=== PATIENT | male | born 1985 | race Caucasian/White ===

== ENCOUNTER 2017-09-13 10:27 | Emergency (ER) | payer OTHER ==
[~2017-09-13] VITALS: Ht 185.4 cm; Wt 61.0 kg
[~2017-09-13 10:27] MED LIST: BUSP10TA PO; LEXA10TA PO
[2017-09-13] MEDS ORDERED: IOHEXOL 350 MG/ML 10 ML VIAL (for RAD DIAG) IVCONTRAST ONE (10:28)
[2017-09-13 10:38] VITALS: BP 112/66; PULSE 68; RESP 17; TEMP 97.9; O2SAT 100
[2017-09-13 11:00] VITALS: BP 120/83; PULSE 66; RESP 12; O2SAT 100
[2017-09-13] MEDS ORDERED: GABA300C5 PO (11:02)
[2017-09-13] MEDS ORDERED: ROBA750T PO (11:02)
[2017-09-13] MEDS ORDERED: LIDOCAINE VISCOUS 2% SOLN 15 ML UDC PO ONE (11:15)
[2017-09-13] MEDS ORDERED: SODIUM CHLOR 0.9% 1000 ML INJ 1,000 ML IV SCH (11:15)
[2017-09-13] MEDS ORDERED: ALUMINUM/MAGNESIUM/SIMETH 30 ML CUP PO ONE (11:15)
[2017-09-13] MEDS ORDERED: SODIUM CHLORIDE 0.9% FLUSH 10 ML FLUSH IV FLUSH PRN (11:15)
[2017-09-13] MEDS ORDERED: ONDANSETRON HCL 4 MG/2 ML VIAL IVP ONE (11:15)
[2017-09-13] MEDS ORDERED: PANTOPRAZOLE SODIUM 40 MG VIAL IVP ONE (11:15)
--- NOTE | 2017-09-13 11:20 | PD ---
HPI Chief Complaint: GI Complaint Time Seen by Provider: 11:05 Travel History International Travel<30 days: No Contact w/Intl Traveler<30days: No Traveled to known affect area: No History of Present Illness HPI This is a 31-year-old male with history of Pepqf-Mcainidyl-Ydnef, anxiety, PTSD , presents for evaluation of nausea, vomiting, diarrhea, abdominal pain. Symptoms started 3 weeks ago. Reports a 1 month ago he was on amoxicillin for sinus infection. Symptoms started shortly after finishing the antibiotic. He reports multiple episodes of watery stool on a daily basis. He reports over the past 3 days also has been somewhat black in color. Denies Pepto-Bismol use. He does report that on a chronic basis he takes 200 mg of ibuprofen a day. He reports associated lower abdominal cramping sensation which is constant. He reports multiple episodes of vomiting a day as well. He reports 15 pound weight loss over the past month. He has not checked his temperature but he has had no chills or myalgias. Denies dysuria, flank pain, chest pain, shortness of breath, palpitations. No history of C. difficile in the past. He reports that he has had issues with diarrhea after antibiotics in the past. He has no other complaints at this time. [facility] Past Medical History Anxiety: Yes Depression: Yes Cardiovascular Problems: Yes (SCHRADER PARKINSON WHITE) Diminished Hearing: No Medical other: Yes (PTSD, SYNCOPE) Psychiatric: Yes Past Surgical History Other Surgery: Yes (02/21/11 L-4 LAMI AND DISCECTOMY) Social History Alcohol Use: No (SOBER 6 MONTHS) Tobacco Use: Yes (CHEWING TOBACCO) Substance Use: No (HX OF ) Allergies-Medications (Allergen,Severity, Reaction): Coded Allergies: No Known Allergies (Unverified Adverse Reaction, Unknown, 09/13/17) Reported Meds & Prescriptions Reported Meds & Active Scripts Active Zofran (Ondansetron HCl) 4 Mg Tab 4 Mg PO Q6HR PRN Reported Robaxin (Methocarbamol) 750 Mg Tab 750 Mg PO BID Gabapentin 300 Mg Cap 300 Mg PO TID Review of Systems Except as stated in HPI: all other systems reviewed are Neg Physical Exam Narrative GENERAL: Well-developed well-nourished male in no acute distress SKIN: Warm and dry. HEAD: Atraumatic. Normocephalic. EYES: Pupils equal and round. No scleral icterus. No injection or drainage. ENT: No nasal bleeding or discharge. Mucous membranes pink and moist. NECK: Trachea midline. No JVD. CARDIOVASCULAR: Regular rate and rhythm. No murmur appreciated. RESPIRATORY: No accessory muscle use. Clear to auscultation. Breath sounds equal bilaterally. GASTROINTESTINAL: Abdomen soft, tender to palpation in the lower quadrants without guarding. There is no CVA tenderness. MUSCULOSKELETAL: No obvious deformities. No clubbing. No cyanosis. No edema. NEUROLOGICAL: Awake and alert. No obvious cranial nerve deficits. Motor grossly within normal limits. Normal speech. PSYCHIATRIC: Appropriate mood and affect; insight and judgment normal. Data Data Last Documented VS Vital Signs Date Time Temp Pulse Resp B/P (MAP) Pulse Ox O2 Delivery O2 Flow Rate FiO2 09/13/17 14:24 65 12 128/72 (90) 100 Room Air 09/13/17 10:38 97.9 Orders Orders Complete Blood Count With Diff (09/13/17 11:15) Comprehensive Metabolic Panel (09/13/17 11:15) Lipase (09/13/17 11:15) Urinalysis - C+S If Indicated (09/13/17 11:15) Ct Abd/Pel W Iv Contrast(Rout) (09/13/17 11:15) Iv Access Insert/Monitor (09/13/17 11:15) Ecg Monitoring (09/13/17 11:15) Oximetry (09/13/17 11:15) Ondansetron Inj (Zofran Inj) (09/13/17 11:15) Pantoprazole Inj (Protonix Inj) (09/13/17 11:15) Sodium Chlor 0.9% 1000 Ml Inj (Ns 1000 M (09/13/17 11:15) Sodium Chloride 0.9% Flush (Ns Flush) (09/13/17 11:15) Electrocardiogram (09/13/17 11:15) Al-Mag Hy-Si 40-40-4 Mg/Ml Liq (Mag-Al P (09/13/17 11:15) Lidocaine 2% Viscous (Xylocaine 2% Visco (09/13/17 11:15) C Diff Toxin Pcr (09/13/17 11:15) Enteric Path (Stool) (09/13/17 11:15) Electrocardiogram (09/13/17 ) Iohexol 350 Inj (Omnipaque 350 Inj) (09/13/17 10:28) Ed Discharge Order (09/13/17 13:41) Labs Laboratory Tests Test 09/13/17 11:15 09/13/17 11:19 09/13/17 12:00 Blood Urea Nitrogen 12 MG/DL Creatinine 1.09 MG/DL Random Glucose 88 MG/DL Total Protein 8.1 GM/DL Albumin 4.7 GM/DL Calcium Level 9.3 MG/DL Alkaline Phosphatase 91 U/L Aspartate Amino Transf (AST/SGOT) 18 U/L Alanine Aminotransferase (ALT/SGPT) 20 U/L Total Bilirubin 0.7 MG/DL Sodium Level 140 MEQ/L Potassium Level 3.7 MEQ/L Chloride Level 107 MEQ/L Carbon Dioxide Level 22.6 MEQ/L Anion Gap 10 MEQ/L Estimat Glomerular Filtration Rate 78 ML/MIN Lipase 146 U/L White Blood Count 5.5 TH/MM3 Red Blood Count 5.17 MIL/MM3 Hemoglobin 15.5 GM/DL Hematocrit 45.5 % Mean Corpuscular Volume 88.0 FL Mean Corpuscular Hemoglobin 29.9 PG Mean Corpuscular Hemoglobin Concent 34.0 % Red Cell Distribution Width 12.5 % Platelet Count 195 TH/MM3 Mean Platelet Volume 10.3 FL Neutrophils (%) (Auto) 44.1 % Lymphocytes (%) (Auto) 40.8 % Monocytes (%) (Auto) 11.1 % Eosinophils (%) (Auto) 3.0 % Basophils (%) (Auto) 1.0 % Neutrophils # (Auto) 2.4 TH/MM3 Lymphocytes # (Auto) 2.2 TH/MM3 Monocytes # (Auto) 0.6 TH/MM3 Eosinophils # (Auto) 0.2 TH/MM3 Basophils # (Auto) 0.1 TH/MM3 CBC Comment DIFF FINAL Differential Comment Urine Color YELLOW Urine Turbidity HAZY Urine pH 7.5 Urine Specific [place] 1.035 Urine Protein 30 mg/dL Urine Glucose (UA) NEG mg/dL Urine Ketones 40 mg/dL Urine Occult Blood NEG Urine Nitrite NEG Urine Bilirubin NEG Urine Urobilinogen 4.0 MG/DL Urine Leukocyte Esterase NEG Urine RBC LESS THAN 1 /hpf Urine WBC 1 /hpf Urine Squamous Epithelial Cells 1 /hpf Urine Mucus MANY /lpf Microscopic Urinalysis Comment CULT NOT INDICATED Stool C. difficile Toxin (PCR) NEGATIVE Stl C. difficile Toxin Epiderm 027 PRESUMPTIVE NEGATIVE MDM Medical Decision Making Medical Screen Exam Complete: Yes Emergency Medical Condition: Yes Medical Record Reviewed: Yes Differential Diagnosis Gastroenteritis, colitis, dehydration, electrolyte abnormality, C. difficile, upper GI bleed, peptic ulcer disease Narrative Course The patient will be placed on ECG monitoring pulse oximetry. A 12-lead EKG will be obtained. Lab work, CT abdomen and pelvis have been ordered. Rectal examination was performed however there is no significant amount of stool in the rectal vault and therefore Hemoccult was negative. The patient will be given IV fluids, Protonix, GI cocktail, Zofran. CBC is unremarkable. CMP is unremarkable. Lipase is normal. CT abdomen and pelvis reveals no acute findings. Urinalysis reveals 30 protein, 40 ketones, 4 urobilinogen, otherwise unremarkable. Workup is very reassuring. Upon reexamination he feels improved after the administration of Zofran. Stool cultures and C. difficile PCR currently pending but C. difficile is unlikely given the normal CT findings and no leukocytosis. If positive the patient will be treated with Flagyl. The patient will be discharged with Zofran. C. difficile PCR is negative. Diagnosis Primary Impression: Nausea vomiting and diarrhea Additional Instructions: Zofran as needed for nausea. Slowly advance diet as tolerated. Follow-up with primary care physician and return for any emergent medical conditions. Med/Other Pt SpecificInfo: Prescription(s) given Scripts Ondansetron (Zofran) 4 Mg Tab 4 MG PO Q6HR Y for NAUSEA OR VOMITING, #20 TAB 0 Refills Prov: Jasiel Schulz MD 09/13/17 Disposition: DISCHARGE HOME Condition: Stable Ranulfo Martin Sep 13, 2017 11:20
[2017-09-13 11:35] VITALS: O2SAT 100
[2017-09-13 11:53] LABS: AUTOMATED NEUTROPHIL # 2.4 TH/MM3 (1.8-7.7); BASOPHIL # 0.1 TH/MM3 (0-0.2); EOSINOPHIL # 0.2 TH/MM3 (0-0.4); HEMATOCRIT 45.5 % (39.0-51.0); HEMOGLOBIN 15.5 GM/DL (13.0-17.0); LYMPH % 40.8 % (9.0-44.0); LYMPHOCYTE # 2.2 TH/MM3 (1.0-4.8); MEAN CORPUSCULAR HEMOGLOBIN 29.9 PG (27.0-34.0); MEAN PLATELET VOLUME 10.3 FL (7.0-11.0); MONO % 11.1 % (0.0-8.0); MONOCYTE # 0.6 TH/MM3 (0-0.9); NEUT % 44.1 % (16.0-70.0); PLATELET COUNT 195 TH/MM3 (150-450); RED BLOOD COUNT 5.17 MIL/MM3 (4.50-5.90); RED CELL DISTRIBUTION WIDTH 12.5 % (11.6-17.2); WHITE BLOOD COUNT 5.5 TH/MM3 (4.0-11.0)
[2017-09-13 12:06] VITALS: BP 99/82; PULSE 78; RESP 12; O2SAT 100
[2017-09-13 12:20] LABS: ALBUMIN 4.7 GM/DL (3.4-5.0); AST (GOT) 18 U/L (15-37); BICARBONATE 22.6 MEQ/L (21.0-32.0); BLOOD UREA NITROGEN 12 MG/DL (7-18); CALCIUM 9.3 MG/DL (8.5-10.1); CHLORIDE 107 MEQ/L (98-107); CREATININE 1.09 MG/DL (0.60-1.30); GLOMERULAR FILTRATION RATE 78 ML/MIN (>89); GLUCOSE,RANDOM 88 MG/DL (74-106); SODIUM (NA) 140 MEQ/L (136-145)
[2017-09-13 12:21] LABS: ALT (GPT) 20 U/L (12-78)
[2017-09-13 12:23] LABS: ALKALINE PHOSPHATASE 91 U/L (45-117); TOTAL BILIRUBIN ADULT 0.7 MG/DL (0.2-1.0); TOTAL PROTEIN 8.1 GM/DL (6.4-8.2)
[2017-09-13 13:00] VITALS: BP 112/68; PULSE 62; RESP 11; O2SAT 100
--- NOTE | 2017-09-13 13:13 | RADRPT ---
EXAM DATE/TIME: 09/13/2017 12:53 [facility] COMPARISON: No previous studies available for comparison. INDICATIONS : Abdominal pain, nausea, vomiting, diarrhea. Blood in stool for 3 weeks. IV CONTRAST: 95 cc Omnipaque 350 (iohexol) IV ORAL CONTRAST: No oral contrast ingested. RADIATION DOSE: 4.66 CTDIvol (mGy) MEDICAL HISTORY : Cardiovascular disease. SURGICAL HISTORY : None. ENCOUNTER: Initial ACUITY: 1 day PAIN SCALE: 7/10 LOCATION: Bilateral Abdomen TECHNIQUE: Volumetric scanning of the abdomen and pelvis was performed. Using automated exposure control and ad justment of the mA and/or kV according to patient size, radiation dose was kept as low as reasonably achievable to obtain optimal diagnostic quality images. DICOM format image data is available electro nically for review and comparison. FINDINGS: LOWER LUNGS: The visualized lower lungs are clear. LIVER: Homogeneous density without lesion. There is no dilation of the biliary tree. No calcified gallston es. SPLEEN: Normal size without lesion. PANCREAS: Within normal limits. KIDNEYS: Normal in size and shape. There is no mass, stone or hydronephrosis. ADRENAL GLANDS: Within normal limits. VASCULAR: There is no aortic aneurysm. BOWEL/MESENTERY: The stomach, small bowel, and colon demonstrate no acute abnormality. There is no free intraperitone al air or fluid. ABDOMINAL WALL: Within normal limits. RETROPERITONEUM: There is no lymphadenopathy. BLADDER: No wall thickening or mass. REPRODUCTIVE: Within normal limits. INGUINAL: There is no lymphadenopathy or hernia. MUSCULOSKELETAL: Mild left lumbar scoliosis. CONCLUSION: Negative CT abdomen/pelvis with contrast. Refugio Brambila MD on September 13, 2017 at 13:09 Board Certified Radiologist. This report was verified electronically.
[2017-09-13 13:26] LABS: BILIRUBIN, URINE NEG (NEG); BLOOD, URINE NEG (NEG); GLUCOSE,URINE NEG (NEG); KETONE, URINE 40 mg/dL (NEG); MUCUS URINE MANY /lpf (OCC); NITRITE,URINE NEG (NEG); PH, URINE 7.5 (5.0-8.5); SQUAMOUS EPITHELIAL CELL URINE 1 /hpf (0-5); URINE COLOR YELLOW (YELLW/STRAW); URINE LEUKOCYTE ESTERASE NEG (NEG)
[2017-09-13] MEDS ORDERED: ZOFR4TAB PO (13:42)
--- NOTE | 2017-09-13 13:54 | PD ---
Data Data Last Documented VS Vital Signs Date Time Temp Pulse Resp B/P (MAP) Pulse Ox O2 Delivery O2 Flow Rate FiO2 09/13/17 12:06 78 12 99/82 (88) 100 Room Air 09/13/17 10:38 97.9 Orders Orders Complete Blood Count With Diff (09/13/17 11:15) Comprehensive Metabolic Panel (09/13/17 11:15) Lipase (09/13/17 11:15) Urinalysis - C+S If Indicated (09/13/17 11:15) Ct Abd/Pel W Iv Contrast(Rout) (09/13/17 11:15) Iv Access Insert/Monitor (09/13/17 11:15) Ecg Monitoring (09/13/17 11:15) Oximetry (09/13/17 11:15) Ondansetron Inj (Zofran Inj) (09/13/17 11:15) Pantoprazole Inj (Protonix Inj) (09/13/17 11:15) Sodium Chlor 0.9% 1000 Ml Inj (Ns 1000 M (09/13/17 11:15) Sodium Chloride 0.9% Flush (Ns Flush) (09/13/17 11:15) Electrocardiogram (09/13/17 11:15) Al-Mag Hy-Si 40-40-4 Mg/Ml Liq (Mag-Al P (09/13/17 11:15) Lidocaine 2% Viscous (Xylocaine 2% Visco (09/13/17 11:15) C Diff Toxin Pcr (09/13/17 11:15) Enteric Path (Stool) (09/13/17 11:15) Electrocardiogram (09/13/17 ) Iohexol 350 Inj (Omnipaque 350 Inj) (09/13/17 10:28) Ed Discharge Order (09/13/17 13:41) Labs Laboratory Tests Test 09/13/17 11:15 09/13/17 11:19 09/13/17 12:00 Blood Urea Nitrogen 12 MG/DL Creatinine 1.09 MG/DL Random Glucose 88 MG/DL Total Protein 8.1 GM/DL Albumin 4.7 GM/DL Calcium Level 9.3 MG/DL Alkaline Phosphatase 91 U/L Aspartate Amino Transf (AST/SGOT) 18 U/L Alanine Aminotransferase (ALT/SGPT) 20 U/L Total Bilirubin 0.7 MG/DL Sodium Level 140 MEQ/L Potassium Level 3.7 MEQ/L Chloride Level 107 MEQ/L Carbon Dioxide Level 22.6 MEQ/L Anion Gap 10 MEQ/L Estimat Glomerular Filtration Rate 78 ML/MIN Lipase 146 U/L White Blood Count 5.5 TH/MM3 Red Blood Count 5.17 MIL/MM3 Hemoglobin 15.5 GM/DL Hematocrit 45.5 % Mean Corpuscular Volume 88.0 FL Mean Corpuscular Hemoglobin 29.9 PG Mean Corpuscular Hemoglobin Concent 34.0 % Red Cell Distribution Width 12.5 % Platelet Count 195 TH/MM3 Mean Platelet Volume 10.3 FL Neutrophils (%) (Auto) 44.1 % Lymphocytes (%) (Auto) 40.8 % Monocytes (%) (Auto) 11.1 % Eosinophils (%) (Auto) 3.0 % Basophils (%) (Auto) 1.0 % Neutrophils # (Auto) 2.4 TH/MM3 Lymphocytes # (Auto) 2.2 TH/MM3 Monocytes # (Auto) 0.6 TH/MM3 Eosinophils # (Auto) 0.2 TH/MM3 Basophils # (Auto) 0.1 TH/MM3 CBC Comment DIFF FINAL Differential Comment Urine Color YELLOW Urine Turbidity HAZY Urine pH 7.5 Urine Specific [place] 1.035 Urine Protein 30 mg/dL Urine Glucose (UA) NEG mg/dL Urine Ketones 40 mg/dL Urine Occult Blood NEG Urine Nitrite NEG Urine Bilirubin NEG Urine Urobilinogen 4.0 MG/DL Urine Leukocyte Esterase NEG Urine RBC LESS THAN 1 /hpf Urine WBC 1 /hpf Urine Squamous Epithelial Cells 1 /hpf Urine Mucus MANY /lpf Microscopic Urinalysis Comment CULT NOT INDICATED MDM Supervised Visit with CLAUDY: Yes Narrative Course I, Dr. Schulz, have reviewed the advance practice practitioner's documentation and am in agreement, met with the patient face to face, made the diagnosis, and the medical decision making was done by me. *My assessment and Findings: Patient is stable for outpatient follow-up. He had extensive workup here which reveals normal CBC and metabolic studies despite his complaint of weeks of diarrhea. CT of the abdomen and pelvis is normal. Patient says he has a cardiac procedure scheduled for tomorrow. However he cannot tell me what the procedure is or what the purpose of it is. He is advised to discuss this with his physician. Diagnosis Primary Impression: Nausea vomiting and diarrhea Additional Instruction: Zofran as needed for nausea. Slowly advance diet as tolerated. Follow-up with primary care physician and return for any emergent medical conditions. Scripts Ondansetron (Zofran) 4 Mg Tab 4 MG PO Q6HR Y for NAUSEA OR VOMITING, #20 TAB 0 Refills Prov: Jasiel Schulz MD 09/13/17 Disposition: 01 DISCHARGE HOME Condition: Stable Jasiel Schulz MD Sep 13, 2017 13:54
[2017-09-13 14:24] VITALS: BP 128/72; PULSE 65; RESP 12; O2SAT 100
--- NOTE | 2017-09-15 10:42 | EKG ---
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 Since the prior tracing, there has been an increase in the heart rate but no other significant s erial change. DOCTOR: Pratibha Lares Interpretating Date/Time 09/15/2017 10:40:35
== END 2017-09-13 15:07 | disposition home or self-care (01) ==
LOC: NEPC 10:27
DX: R11.2 Nausea with vomiting, unspecified (principal); R19.7 Diarrhea, unspecified; R94.31 Abnormal electrocardiogram [ECG] [EKG]; I45.6 Pre-excitation syndrome; F32.9 Major depressive disorder, single episode, unspecified; F43.10 Post-traumatic stress disorder, unspecified; F17.220 Nicotine dependence, chewing tobacco, uncomplicated; Z79.899 Other long term (current) drug therapy
CPT/HCPCS: 74177; 80053; 81001; 83690; 85025; 87493; 93005; 96361; 96374; 96375; 99285; C9113; J2405; J7030; Q9967

== ENCOUNTER 2017-10-13 10:36 | Emergency (ER) | payer OTHER ==
[~2017-10-13] VITALS: Ht 190.5 cm; Wt 70.0 kg
[~2017-10-13 10:36] MED LIST changes: -BUSP10TA PO; +GABA300C5 PO; -LEXA10TA PO; +ROBA750T PO; +ZOFR4TAB PO
[2017-10-13 10:51] VITALS: BP 121/69; PULSE 85; RESP 17; TEMP 98.4; O2SAT 99
[2017-10-13] MEDS ORDERED: VENL25TA PO (11:02)
[2017-10-13] MEDS ORDERED: BACT800T5 PO (11:13)
[2017-10-13] MEDS ORDERED: CEPH-460 PO (11:13)
--- NOTE | 2017-10-13 11:17 | PD ---
HPI Chief Complaint: Skin Problem Time Seen by Provider: 11:05 Travel History International Travel<30 days: No Contact w/Intl Traveler<30days: No Traveled to known affect area: No History of Present Illness HPI Patient comes [facility] complaining of painful lump on the right side of his neck. Patient reports the lump is been there for approximately 20 years. Patient reports [facility] but [facility]. Patient states over the past week and half began growing becoming painful. Describes pain as a pressure throbbing-like sensation without radiation. Pain is worse with certain movement of his neck and palpation. Patient denies doing anything for this. Patient reports [facility] however he stated they would send him here so he just came here anyway. Patient denies any fevers, nausea, vomiting, swallowing, chest pain, shortness of breath, or headaches. Severity mild. PFSH Past Medical History Atrial Fibrillation: Yes (ABLATION X 2 ) Anxiety: Yes Depression: Yes Cardiovascular Problems: Yes (SCHRADER PARKINSON WHITE) Diminished Hearing: No Psychiatric: Yes Past Surgical History Other Surgery: Yes (02/21/11 L-4 LAMI AND DISCECTOMY) Social History Alcohol Use: No (SOBER 6 MONTHS) Tobacco Use: Yes (CHEWING TOBACCO) Substance Use: No (HX OF ) Allergies-Medications (Allergen,Severity, Reaction): Coded Allergies: No Known Allergies (Unverified Adverse Reaction, Unknown, 09/13/17) Reported Meds & Prescriptions Reported Meds & Active Scripts Active Bactrim DS (Sulfamethoxazole-Trimethoprim) 800-160 Mg Tab 1 Tab PO BID Keflex (Cephalexin) 500 Mg Cap 500 Mg PO Q8H Zofran (Ondansetron HCl) 4 Mg Tab 4 Mg PO Q6HR PRN Reported Effexor (Venlafaxine HCl) 25 Mg Tab 25 Mg PO DAILY Robaxin (Methocarbamol) 750 Mg Tab 750 Mg PO BID Gabapentin 300 Mg Cap 300 Mg PO TID Review of Systems Except as stated in HPI: all other systems reviewed are Neg Physical Exam Narrative GENERAL: Well-developed, well nourished, in no acute distress, and non-ill appearing. SKIN: Focused skin assessment warm and dry. Patient is a tender sebaceous cyst noted on the right side of his neck. It is mildly erythematous, tender, with minimal fluctuation. No crepitus. No drainage. HEAD: Atraumatic. Normocephalic. EYES: Pupils equal and round. EOMI. No scleral icterus. No injection or drainage. ENT: No nasal bleeding or discharge. Mucous membranes pink and moist. NECK: Trachea midline. No cervical lymphadenopathy. Supple. No nuclear rigidity. RESPIRATORY: No accessory muscle use. No respiratory distress. MUSCULOSKELETAL: No obvious deformities. No clubbing. No cyanosis. No edema. Full range of motion. NEUROLOGICAL: Awake and alert. No obvious cranial nerve deficits. Motor grossly within normal limits. Normal speech. PSYCHIATRIC: Appropriate mood and affect; insight and judgment normal. Data Data Last Documented VS Vital Signs Date Time Temp Pulse Resp B/P (MAP) Pulse Ox O2 Delivery O2 Flow Rate FiO2 10/13/17 10:59 69 18 10/13/17 10:51 98.4 121/69 (86) 99 Orders Orders Ed Discharge Order (10/13/17 11:18) [facility] Medical Decision Making Medical Screen Exam Complete: Yes Emergency Medical Condition: Yes Differential Diagnosis Abscess, cellulitis, infected sebaceous cyst Narrative Course There is no evidence of necrotizing fasciitis at this time, pain is proportional and no crepitus is noted. There is no evidence of drainable abscess as well at this time. The patient will be discharged on antibiotics. The patient was given signs and symptoms warnings for worsening infection, such as spreading of redness, increasing pain, and/or swelling, associated heat, or fever and instructed to return immediately if these signs or symptoms worsen. The patient is to follow up with physician in 2 days for recheck or return here in 2 days for recheck if unable to establish outpatient follow up. Sooner if worsens or as needed. The patient agrees with plan. Patient in no obvious distress upon re-evaluation. All pertinent laboratory/ Radiology result(s) discussed with patient. Discussed patient with Dr. Estrada, who saw and evaluated patient is in agreement plan of care and disposition. Any questions/concerns in reference to patient diagnosis/condition discussed and clarified prior to patient's discharge. Reinforced sheer importance of close follow up with patient's primary physician or primary care clinic. Instructed patient to return to ED immediately, if symptoms return/worsen. Patient showed understanding of above instructions. Further instructions and recommendations were detailed in discharge paperwork. Patient ambulated without difficulty out of ED at discharge. Diagnosis Primary Impression: Infected sebaceous cyst Patient Instructions: Cellulitis (ED), Cyst (ED), General Instructions Additional Instructions: Follow-up with your primary care physician or return here in 2 days for recheck. Follow-up with ENT for possible cyst removal. Take all medication as prescribed. Return to the emergency department sooner if symptoms get worse. Med/Other Pt SpecificInfo: Prescription(s) given Scripts Sulfamethoxazole-Trimethoprim (Bactrim DS) 800-160 Mg Tab 1 TAB PO BID for Infection, #20 TAB 0 Refills Prov: Leatha Estrada DO 10/13/17 Cephalexin (Keflex) 500 Mg Cap 500 MG PO Q8H for Infection, #30 CAP 0 Refills Prov: Leatha Estrada DO 10/13/17 Disposition: 01 DISCHARGE HOME Condition: Stable Elias Champion October 13, 2017 11:17
== END 2017-10-13 11:33 | disposition home or self-care (01) ==
LOC: NEPE 10:36
DX: L72.3 Sebaceous cyst (principal); L08.9 Local infection of the skin and subcutaneous tissue, unspecified; I45.6 Pre-excitation syndrome; I48.91 Unspecified atrial fibrillation; F32.9 Major depressive disorder, single episode, unspecified; F41.9 Anxiety disorder, unspecified; F17.220 Nicotine dependence, chewing tobacco, uncomplicated; Z79.899 Other long term (current) drug therapy
CPT/HCPCS: 99283

== ENCOUNTER 2017-10-16 10:14 | Emergency (ER) | payer OTHER ==
[~2017-10-16] VITALS: Ht 190.5 cm; Wt 72.0 kg
[~2017-10-16 10:14] MED LIST changes: +BACT800T5 PO; +CEPH-460 PO; +VENL25TA PO
[2017-10-16 10:17] VITALS: BP 112/76; PULSE 76; RESP 16; TEMP 98.1; O2SAT 100
[2017-10-16 10:42] VITALS: BP 109/77; PULSE 76; RESP 18; O2SAT 99
[2017-10-16 11:41] LABS: AUTOMATED NEUTROPHIL # 2.5 TH/MM3 (1.8-7.7); EOSINOPHIL # 0.3 TH/MM3 (0-0.4); HEMATOCRIT 38.6 % (39.0-51.0); HEMOGLOBIN 13.2 GM/DL (13.0-17.0); LYMPHOCYTE # 1.5 TH/MM3 (1.0-4.8); MEAN CELL VOLUME 89.3 FL (80.0-100.0); MEAN CORPUSCULAR HEMOGLOBIN 30.5 PG (27.0-34.0); MEAN CORPUSCULAR HGB CONC 34.2 % (32.0-36.0); MEAN PLATELET VOLUME 9.5 FL (7.0-11.0); MONO % 12.4 % (0.0-8.0); MONOCYTE # 0.6 TH/MM3 (0-0.9); NEUT % 50.6 % (16.0-70.0); PLATELET COUNT 200 TH/MM3 (150-450); RED BLOOD COUNT 4.32 MIL/MM3 (4.50-5.90)
[2017-10-16 11:51] LABS: PROTHROMBIN TIME - PATIENT 10.4 SEC (9.8-11.6)
--- NOTE | 2017-10-16 12:00 | RADRPT ---
EXAM DATE/TIME: 10/16/2017 11:26 [facility] COMPARISON: No previous studies available for comparison. INDICATIONS : Right neck palpable lump. MEDICAL HISTORY : Depression. Anxiety. SURGICAL HISTORY : Cardiac ablation x2. Right hand surgery with plate/screw placement. L4 laminectomy and discectomy. ENCOUNTER: Initial ACUITY: 1 week PAIN SCORE: 9/10 LOCATION: Right neck AREA EVALUATED: Right mid neck. FINDINGS: A complex mass is observed involving the right mid neck. This measures 4.4 x 4.1 x 1.6 cm. It has mix ed echogenicity. There is some posterior acoustical enhancement. No significant hyperemia associated with this. CONCLUSION: Complex mass within the area of palpable concern. Differential diagnostic considerations would includ e an area of phlegmon that has yet to liquefy versus a soft tissue mass. No drainable fluid collectio n is seen. Refugio Montalvo Jr., MD on October 16, 2017 at 11:53 Board Certified Radiologist. This report was verified electronically.
[2017-10-16 12:10] LABS: ALBUMIN 3.9 GM/DL (3.4-5.0); ALKALINE PHOSPHATASE 90 U/L (45-117); ALT (GPT) 17 U/L (12-78); AST (GOT) 13 U/L (15-37); BICARBONATE 23.3 MEQ/L (21.0-32.0); BLOOD UREA NITROGEN 8 MG/DL (7-18); CALCIUM 9.1 MG/DL (8.5-10.1); CHLORIDE 105 MEQ/L (98-107); CREATININE 0.95 MG/DL (0.60-1.30); GLOMERULAR FILTRATION RATE 91 ML/MIN (>89); GLUCOSE,RANDOM 86 MG/DL (74-106); SODIUM (NA) 135 MEQ/L (136-145); TOTAL BILIRUBIN ADULT 0.5 MG/DL (0.2-1.0); TOTAL PROTEIN 7.4 GM/DL (6.4-8.2)
--- NOTE | 2017-10-16 12:14 | PD ---
HPI Chief Complaint: Skin Problem Time Seen by Provider: 10:43 Travel History International Travel<30 days: No Contact w/Intl Traveler<30days: No Traveled to known affect area: No History of Present Illness HPI This is a 31-year-old male who presents to the emergency department with swelling on his right neck, constant, moderate severity, increasing over the past 2 weeks. He is always had a cyst there but over the past 2 weeks it has doubled in size and has become very inflamed. He has been taking Keflex and Bactrim but is not improving so he came to the emergency department. He is on Eliquis for atrial fibrillation. PFSH Past Medical History Atrial Fibrillation: Yes (ABLATION X 2 ) Anxiety: Yes Depression: Yes Cardiovascular Problems: Yes ([place] WHITE) Diminished Hearing: No Psychiatric: Yes Past Surgical History Other Surgery: Yes (02/21/11 L-4 LAMI AND DISCECTOMY) Social History Alcohol Use: No (SOBER 6 MONTHS) Tobacco Use: Yes (CHEWING TOBACCO) Substance Use: Yes (THC daily. Hx of abuse) Allergies-Medications (Allergen,Severity, Reaction): Coded Allergies: No Known Allergies (Unverified Adverse Reaction, Unknown, 09/13/17) Reported Meds & Prescriptions Reported Meds & Active Scripts Active Bactrim DS (Sulfamethoxazole-Trimethoprim) 800-160 Mg Tab 1 Tab PO BID Keflex (Cephalexin) 500 Mg Cap 500 Mg PO Q8H Reported Effexor (Venlafaxine HCl) 25 Mg Tab 25 Mg PO DAILY Robaxin (Methocarbamol) 750 Mg Tab 750 Mg PO BID Gabapentin 300 Mg Cap 300 Mg PO TID Review of Systems Except as stated in HPI: all other systems reviewed are Neg Physical Exam Narrative GENERAL:Well appearing, no acute distress SKIN: 4 cm cystic structure with an area of fluctuance over the right posterior neck, warm and erythematous HEAD: Atraumatic. Normocephalic. EYES: Pupils equal and round. No injection or drainage. ENT: Moist mucous membranes NECK: Trachea midline. CARDIOVASCULAR: Regular rate and rhythm. No murmur appreciated. RESPIRATORY: Clear to auscultation. Breath sounds equal bilaterally. GASTROINTESTINAL: Abdomen soft, non-tender, nondistended. MUSCULOSKELETAL: No obvious deformities. NEUROLOGICAL: Awake and alert. No obvious cranial nerve deficits. Moving all extremities. PSYCHIATRIC: Appropriate mood and affect; insight and judgment normal. Data Data Last Documented VS Vital Signs Date Time Temp Pulse Resp B/P (MAP) Pulse Ox O2 Delivery O2 Flow Rate FiO2 10/16/17 10:42 89 18 10/16/17 10:42 109/77 (88) 99 Room Air 10/16/17 10:17 98.1 Orders Orders Complete Blood Count With Diff (10/16/17 10:52) Comprehensive Metabolic Panel (10/16/17 10:52) ^ Insert Iv (10/16/17 10:52) Prothrombin Time / Inr (Pt) (10/16/17 10:52) Act Partial Throm Time (Ptt) (10/16/17 10:52) Us Soft Tissue Neck (10/16/17 ) Lidocaine 1% Inj (50 Ml) (Xylocaine 1% I (10/16/17 12:30) Lidocai-Epi 1%-1:100,000 Inj (Xylocaine- (10/16/17 12:30) Labs Laboratory Tests Test 10/16/17 10:55 White Blood Count 5.0 TH/MM3 Red Blood Count 4.32 MIL/MM3 Hemoglobin 13.2 GM/DL Hematocrit 38.6 % Mean Corpuscular Volume 89.3 FL Mean Corpuscular Hemoglobin 30.5 PG Mean Corpuscular Hemoglobin Concent 34.2 % Red Cell Distribution Width 13.0 % Platelet Count 200 TH/MM3 Mean Platelet Volume 9.5 FL Neutrophils (%) (Auto) 50.6 % Lymphocytes (%) (Auto) 31.0 % Monocytes (%) (Auto) 12.4 % Eosinophils (%) (Auto) 5.0 % Basophils (%) (Auto) 1.0 % Neutrophils # (Auto) 2.5 TH/MM3 Lymphocytes # (Auto) 1.5 TH/MM3 Monocytes # (Auto) 0.6 TH/MM3 Eosinophils # (Auto) 0.3 TH/MM3 Basophils # (Auto) 0.0 TH/MM3 CBC Comment DIFF FINAL Differential Comment Prothrombin Time 10.4 SEC Prothromb Time International Ratio 1.0 RATIO Activated Partial Thromboplast Time 29.6 SEC Blood Urea Nitrogen 8 MG/DL Creatinine 0.95 MG/DL Random Glucose 86 MG/DL Total Protein 7.4 GM/DL Albumin 3.9 GM/DL Calcium Level 9.1 MG/DL Alkaline Phosphatase 90 U/L Aspartate Amino Transf (AST/SGOT) 13 U/L Alanine Aminotransferase (ALT/SGPT) 17 U/L Total Bilirubin 0.5 MG/DL Sodium Level 135 MEQ/L Potassium Level 4.0 MEQ/L Chloride Level 105 MEQ/L Carbon Dioxide Level 23.3 MEQ/L Anion Gap 7 MEQ/L Estimat Glomerular Filtration Rate 91 ML/MIN MDM Medical Decision Making Medical Screen Exam Complete: Yes Emergency Medical Condition: Yes Interpretation(s) Afebrile, no tachycardia, normotensive No leukocytosis Electrolytes are reassuring Last 24 hours Impressions Neck Ultrasound 10/16/17 0000 Signed Impressions: Service Date/Time: Monday, October 16, 2017 11:26 - CONCLUSION: Complex mass within the area of palpable concern. Differential diagnostic considerations would include an area of phlegmon that has yet to liquefy versus a soft tissue mass. No drainable fluid collection is seen. Refugio Montalvo Jr., MD Differential Diagnosis Abscess, sebaceous cyst, lymph node, pseudoaneurysm Narrative Course This is a 31-year-old male who presents to the emergency department with mass on his right neck. It is inflamed on exam. He is nontoxic appearing. He is on Eliquis. Ultrasound demonstrates distance from the neck vasculature. On ultrasound it appears to be a firm mass but on exam there is an obvious area of fluctuance. Patient was injected with lidocaine with epi and an incision and drainage was performed. Copious amounts of thin and thick white and yellow malodorous discharge were expressed from the neck. Bleeding was minimal. I did tell the patient I think this was an infected sebaceous cyst and in order to completely address the issue he will need to have the cyst excised by a surgeon. Patient tolerated the procedure well. I urged him to continue his antibiotics and warm compresses to the area. Procedures Procedure Narrative Incision and drainage: 4 cm fluctuant mass on the right neck was injected with 4 cc 1% lidocaine with epi. An 11 blade scalpel was used to incise the abscess. Copious amounts of yellow and white thick discharge were expressed. Patient tolerated the procedure well Patient Instructions: General Instructions Additional Instructions: If you develop fever, increasing redness, warmth, or spreading of your infection , or severe pain return to the emergency department immediately as you may require antibiotics through your IV. Complete your course of antibiotics as prescribed. Med/Other Pt SpecificInfo: Prescription(s) given Scripts Hydrocodone/Acetaminophen (Hydrocodone-Acetamin 5-325 mg) 5 Mg-325 Mg Tablet 1 TAB PO Q6HR Y for PAIN SCALE 4 TO 10, #6 Prov: Nithya Masters MD 10/16/17 Disposition: 01 DISCHARGE HOME Condition: Stable Nithya Masters MD October 16, 2017 12:14
[2017-10-16] MEDS ORDERED: LIDOCAINE 1%/EPINEPHrine 1:100,000 SOLN 20 ML VIAL INFIL ONE (12:30)
[2017-10-16] MEDS ORDERED: LIDOCAINE HCL 1% 50 ML VIAL INFIL ONE (12:30)
[2017-10-16] MEDS ORDERED: HYDR-3516 PO (12:44)
[2017-10-16] MEDS ORDERED: ACETAMINOPHEN/HYDROcodone 325 MG/5 MG TAB PO ONE (12:45)
== END 2017-10-16 13:14 | disposition home or self-care (01) ==
LOC: NEPE 10:14
DX: R22.1 Localized swelling, mass and lump, neck (principal); I48.91 Unspecified atrial fibrillation; I45.6 Pre-excitation syndrome; F32.9 Major depressive disorder, single episode, unspecified; F17.220 Nicotine dependence, chewing tobacco, uncomplicated; Z79.01 Long term (current) use of anticoagulants; Z79.899 Other long term (current) drug therapy
CPT/HCPCS: 10060; 76536; 80053; 85025; 85610; 85730

== ENCOUNTER 2017-11-12 11:58 | Emergency (ER) | payer OTHER ==
[2017-11-12] VITALS (8 sets, daily range): BP systolic 101–138; BP diastolic 57–81; PULSE 76–80; RESP 15–18; TEMP 97.4–97.8; O2SAT 99–100
[~2017-11-12] VITALS: Ht 190.5 cm; Wt 65.0 kg
[~2017-11-12 11:58] MED LIST changes: +HYDR-3516 PO; -ZOFR4TAB PO
[2017-11-12] MEDS ORDERED: SODIUM CHLOR 0.9% 1000 ML INJ 1,000 ML IV ONE (12:41)
[2017-11-12] MEDS ORDERED: SODIUM CHLORIDE 0.9% FLUSH 10 ML FLUSH IVF PRN (12:45)
[2017-11-12 14:20] LABS: AUTOMATED NEUTROPHIL # 5.2 TH/MM3 (1.8-7.7); BASOPHIL # 0.1 TH/MM3 (0-0.2); BASOPHIL % 0.7 % (0.0-2.0); EOSINOPHIL # 0.1 TH/MM3 (0-0.4); EOSINOPHIL % 1.4 % (0.0-4.0); HEMATOCRIT 42.3 % (39.0-51.0); HEMOGLOBIN 14.9 GM/DL (13.0-17.0); LYMPH % 23.9 % (9.0-44.0); LYMPHOCYTE # 1.9 TH/MM3 (1.0-4.8); MEAN CELL VOLUME 87.9 FL (80.0-100.0); MEAN CORPUSCULAR HEMOGLOBIN 30.9 PG (27.0-34.0); MEAN CORPUSCULAR HGB CONC 35.2 % (32.0-36.0); MONOCYTE # 0.6 TH/MM3 (0-0.9); PLATELET COUNT 218 TH/MM3 (150-450); RED BLOOD COUNT 4.82 MIL/MM3 (4.50-5.90); RED CELL DISTRIBUTION WIDTH 13.1 % (11.6-17.2); WHITE BLOOD COUNT 7.8 TH/MM3 (4.0-11.0)
[2017-11-12 14:34] LABS: INTERNATIONAL NORMALIZED RATIO 1.1 RATIO; PROTHROMBIN TIME - PATIENT 10.7 SEC (9.8-11.6)
[2017-11-12 14:39] LABS: ALBUMIN 4.5 GM/DL (3.4-5.0); ALT (GPT) 16 U/L (12-78); AST (GOT) 21 U/L (15-37); BICARBONATE 19.5 MEQ/L (21.0-32.0); BLOOD UREA NITROGEN 13 MG/DL (7-18); CALCIUM 9.3 MG/DL (8.5-10.1); CHLORIDE 101 MEQ/L (98-107); CREATININE 1.13 MG/DL (0.60-1.30); GLOMERULAR FILTRATION RATE 74 ML/MIN (>89); GLUCOSE,RANDOM 71 MG/DL (74-106); SODIUM (NA) 137 MEQ/L (136-145)
[2017-11-12 14:42] LABS: ALKALINE PHOSPHATASE 97 U/L (45-117); TOTAL BILIRUBIN ADULT 0.9 MG/DL (0.2-1.0); TOTAL PROTEIN 8.1 GM/DL (6.4-8.2); TROPONIN I LESS THAN 0.02 NG/ML (0.02-0.05)
[2017-11-12] MEDS ORDERED: IOHEXOL 350 MG/ML 10 ML VIAL (for RAD DIAG) IVCONTRAST ONE (16:30)
--- NOTE | 2017-11-12 16:36 | RADRPT ---
EXAM DATE: 11/12/2017 4:31 PM EDT AGE/SEX: 32 years / Male INDICATIONS: Trauma, fall in shower today. CLINICAL DATA: This is the patient's initial encounter. Patient reports that signs and symptoms have been present for 1 day and indicates a pain score of 7/10. MEDICAL/SURGICAL HISTORY: Cardiovascular disease. None. RADIATION DOSE: 63.67 CTDI (mGy) COMPARISON: No prior [facility] exams available for comparison. TECHNIQUE: CT of the head without contrast. Using automated exposure control and adjustment of the mA and/or kV according to patient size, radiation dose was kept as low as reasonably achievable to ob tain optimal diagnostic quality images. FINDINGS: Cerebrum: The ventricles are normal for age. No evidence of midline shift, mass lesion, hemorrhage or acute infarction. No extraaxial fluid collections are seen. Posterior Fossa: The cerebellum and brainstem are intact. The 4th ventricle is midline. The cerebe llopontine angle is unremarkable. Extracranial: The visualized portion of the orbits is intact. The maxillary sinuses are completely o pacified consistent with severe bilateral maxillary sinus disease with possible underlying mucoceles bilaterally. Skull: The calvaria is intact. No evidence of skull fracture. CONCLUSION: 1. No acute intracranial abnormality. 2. Maxillary sinuses are completely opacified consistent with severe bilateral maxillary sinus disea se with possible underlying mucoceles bilaterally. Electronically signed by: Sim Joseph MD 11/12/2017 4:35 PM EDT
--- NOTE | 2017-11-12 16:40 | RADRPT ---
EXAM DATE: 11/12/2017 4:32 PM EDT AGE/SEX: 32 years / Male INDICATIONS: Trauma, fall in shower today. CLINICAL DATA: This is the patient's initial encounter. Patient reports that signs and symptoms have been present for 1 day and indicates a pain score of 7/10. MEDICAL/SURGICAL HISTORY: Cardiovascular disease. None. RADIATION DOSE: 13.07 CTDI (mGy) COMPARISON: No prior [facility] exams available for comparison. TECHNIQUE: Contiguous axial images were obtained using helical multirow detector technique. The vol umetric data was post-processed with multiplanar reconstruction in oblique axial, sagittal, and coron al planes. Using automated exposure control and adjustment of the mA and/or kV according to patient s ize, radiation dose was kept as low as reasonably achievable to obtain optimal diagnostic quality ana laura ges. FINDINGS: No acute fracture or prevertebral soft tissue swelling is noted. Biapical fibrotic scarring is noted. C2-3: The bony spinal canal is normal in size. No evidence of disc bulge or herniation. The neural foramina are bilaterally patent. C3-4: The bony spinal canal is normal in size. No evidence of disc bulge or herniation. The neural foramina are bilaterally patent. C4-5: The bony spinal canal is normal in size. No evidence of disc bulge or herniation. The neural foramina are bilaterally patent. C5-6: The bony spinal canal is normal in size. No evidence of disc bulge or herniation. The neural foramina are bilaterally patent. C6-7: The bony spinal canal is normal in size. No evidence of disc bulge or herniation. The neural foramina are bilaterally patent. C7-T1: The bony spinal canal is normal in size. No evidence of disc bulge or herniation. The neura l foramina are bilaterally patent. CONCLUSION: 1. No acute fracture or prevertebral soft tissue swelling. 2. Biapical fibrotic scarring. Electronically signed by: Sim Joseph MD 11/12/2017 4:38 PM EDT
[2017-11-12] MEDS ORDERED: ACETAMINOPHEN/HYDROcodone 325 MG/5 MG TAB PO ONE (16:45)
--- NOTE | 2017-11-12 16:45 | RADRPT ---
EXAM DATE: 11/12/2017 4:35 PM EDT AGE/SEX: 32 years / Male INDICATIONS: Episode of substernal chest pain earlier today. CLINICAL DATA: This is the patient's initial encounter. Patient reports that signs and symptoms have been present for 1 day and indicates a pain score of 0/10. MEDICAL/SURGICAL HISTORY: Cardiovascular disease. None. RADIATION DOSE: 7.17 CTDI (mGy) COMPARISON: No prior [facility] exams available for comparison. TECHNIQUE: Volumetric scanning was performed using a multi-row detector CT scanner during bolus infu jason of 70 ml Omnipaque 350 (iohexol) nonionic water-soluble contrast as a single exam dose. The hannah a was post processed with a variety of visualization algorithms including full volume maximum intensi ty projection and sliding thin slab reformation. Using automated exposure control and adjustment of the mA and/or kV according to patient size, radiation dose was kept as low as reasonably achievable t o obtain optimal diagnostic quality images. FINDINGS: Pulmonary Arteries: No filling defects are seen in the pulmonary arteries out to the subsegmental ve ssels. The left and right pulmonary arteries are normal in diameter. Lung: No infiltrates seen. There is a 5 mm noncalcified nodular density within the expected region o f the minor fissure consistent with possible lymph node or true pulmonary nodule. Follow-up CT of the chest in one year is recommended to confirm stability. Biapical fibrotic scarring is noted. Effusion: None. Mediastinum: No evidence of mediastinal or hilar adenopathy. Other: The axilla is unremarkable. Scoliosis and degenerative changes of the thoracic spine are note d. CONCLUSION: 1. No evidence of pulmonary embolism. 2. 5 mm noncalcified nodular density within the expected region of the minor fissure consistent with possible lymph node or true pulmonary nodule. Follow-up CT of the chest in one year is recommended t o confirm stability. 3. Biapical fibrotic scarring. 4. Scoliosis and degenerative changes of the thoracic spine. Electronically signed by: Sim Joseph MD 11/12/2017 4:44 PM EDT
--- NOTE | 2017-11-12 17:16 | RADRPT ---
EXAM DATE: 11/12/2017 5:13 PM EDT AGE/SEX: 32 years / Male INDICATIONS: Left shoulder pain from a syncopal episode with a fall. CLINICAL DATA: This is the patient's initial encounter. Patient reports that signs and symptoms have been present for 1 day and indicates a pain score of 3/10. MEDICAL/SURGICAL HISTORY: . A-Fib . Cardiac ablation times two. COMPARISON: No prior [facility] exams available for comparison. FINDINGS: Bony structures are intact and in normal alignment. Joints are intact without dislocation or signifi cant arthropathy. Osseous density is normal. Soft tissues are unremarkable. No radiopaque foreign bodies seen. CONCLUSION: No evidence of recent bony injury. Electronically signed by: Sim Joseph MD 11/12/2017 5:15 PM EDT
--- NOTE | 2017-11-12 17:18 | RADRPT ---
EXAM DATE: 11/12/2017 5:13 PM EDT AGE/SEX: 32 years / Male INDICATIONS: Left hip pain from a syncopal episode with fall. CLINICAL DATA: This is the patient's initial encounter. Patient reports that signs and symptoms have been present for 1 day and indicates a pain score of 3/10. MEDICAL/SURGICAL HISTORY: . A-Fib . Cardiac ablation times two. COMPARISON: No prior [facility] exams available for comparison. FINDINGS: Bony structures are intact and in normal alignment. There is no evidence of hip dislocation. Mild deg enerative changes are noted involving the hips bilaterally. Osseous density is normal. Soft tissues are unremarkable. No radiopaque foreign bodies seen. CONCLUSION: 1. No acute fracture or dislocation. 2. Mild degenerative changes involving the hip joints bilaterally. Electronically signed by: Sim Joseph MD 11/12/2017 5:16 PM EDT
--- NOTE | 2017-11-12 18:06 | PD ---
HPI Chief Complaint: Syncope/Near-Syncope Time Seen by Provider: 12:22 Travel History International Travel<30 days: No Contact w/Intl Traveler<30days: No Traveled to known affect area: No History of Present Illness HPI Patient is a 32 year old male who comes in complaining of a syncopal episode. He says that he showered and then he woke up on the ground. This happened just prior to arrival. He denies feeling dizzy prior to the vent. He says he has had some shortness of breath. 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 He has had two ablations. He says that he has noticed his pulse increasing when he stands. He denies any chest pain. He says he has pain to his left shoulder and left leg. Severity is mild to moderate. PFSH Past Medical History Atrial Fibrillation: Yes (ABLATION X 2 ) Anxiety: Yes Depression: Yes Cardiovascular Problems: Yes Diminished Hearing: No Psychiatric: Yes Tetanus Vaccination: > 5 Years Influenza Vaccination: Yes Past Surgical History Other Surgery: Yes (02/21/11 L-4 LAMI AND DISCECTOMY) Social History Alcohol Use: No Tobacco Use: Yes (CHEWING TOBACCO) Substance Use: Yes (THC daily. Hx of abuse) Allergies-Medications (Allergen,Severity, Reaction): Coded Allergies: No Known Allergies (Verified Adverse Reaction, Unknown, 11/12/17) Reported Meds & Prescriptions Reported Meds & Active Scripts Active Reported Effexor (Venlafaxine HCl) 25 Mg Tab 25 Mg PO DAILY Robaxin (Methocarbamol) 750 Mg Tab 750 Mg PO BID Gabapentin 300 Mg Cap 300 Mg PO TID Review of Systems Except as stated in HPI: all other systems reviewed are Neg General / Constitutional: No: Fever, Chills Eyes: No: Blurred Vision HENT: No: Headaches, Lightheadedness Cardiovascular: Positive: Palpitations, No: Chest Pain or Discomfort Respiratory: Positive: Shortness of Breath Gastrointestinal: No: Nausea, Vomiting Musculoskeletal: Positive: Pain, No: Myalgias Skin: No Rash, No Itching Neurologic: Positive: Syncope, No: Sensory Disturbance Physical Exam Narrative GENERAL: Awake and alert, no acute distress. SKIN: Focused skin assessment warm/dry. No wounds or signs of infection. HEAD: Atraumatic. Normocephalic. EYES: Pupils equal and round. No scleral icterus. Extraocular movements intact. ENT: Mucous membranes pink and moist. NECK: Trachea midline. No JVD. No cervical spine tenderness. CARDIOVASCULAR: Regular rate and rhythm. No murmur appreciated. RESPIRATORY: No accessory muscle use. Clear to auscultation. Breath sounds equal bilaterally. GASTROINTESTINAL: Abdomen soft, non-tender, nondistended. MUSCULOSKELETAL: No obvious deformities. No clubbing. No cyanosis. No edema. Tender to palpation of the left hip. Pain with movement of the left arm and left leg. Pulses intact. NEUROLOGICAL: Awake and alert. No obvious cranial nerve deficits. Motor grossly within normal limits. Normal speech. PSYCHIATRIC: Appropriate mood and affect; insight and judgment normal. Data Data Last Documented VS Vital Signs Date Time Temp Pulse Resp B/P (MAP) Pulse Ox O2 Delivery O2 Flow Rate FiO2 11/12/17 17:40 66 18 113/72 (86) 95 16 122/66 (84) 11/12/17 17:06 97.8 99 Room Air Orders Orders Electrocardiogram (11/12/17 ) Complete Blood Count With Diff (11/12/17 12:41) Comprehensive Metabolic Panel (11/12/17 12:41) Ckmb (Isoenzyme) Profile (11/12/17 12:41) Troponin I (11/12/17 12:41) Act Partial Throm Time (Ptt) (11/12/17 12:41) Prothrombin Time / Inr (Pt) (11/12/17 12:41) Ct Brain W/O Iv Contrast(Rout) (11/12/17 12:41) Ct Cerv Spine W/O Contrast (11/12/17 12:41) Ecg Monitoring (11/12/17 12:41) Iv Access Insert/Monitor (11/12/17 12:41) Oximetry (11/12/17 12:41) Sodium Chloride 0.9% Flush (Ns Flush) (11/12/17 12:45) Sodium Chlor 0.9% 1000 Ml Inj (Ns 1000 M (11/12/17 12:41) Ct Pulmonary Angiogram (11/12/17 12:41) CKMB (11/12/17 13:08) CKMB% (11/12/17 13:08) Shoulder, Complete (>2vws) (11/12/17 ) Acetamin-Hydrocod 325-5 Mg (Gile 5-325 (11/12/17 16:45) Iohexol 350 Inj (Omnipaque 350 Inj) (11/12/17 16:30) Hip, Uni(Ap&Lat) W Ap Pelvis (11/12/17 ) Labs Laboratory Tests Test 11/12/17 13:08 White Blood Count 7.8 TH/MM3 Red Blood Count 4.82 MIL/MM3 Hemoglobin 14.9 GM/DL Hematocrit 42.3 % Mean Corpuscular Volume 87.9 FL Mean Corpuscular Hemoglobin 30.9 PG Mean Corpuscular Hemoglobin Concent 35.2 % Red Cell Distribution Width 13.1 % Platelet Count 218 TH/MM3 Mean Platelet Volume 10.0 FL Neutrophils (%) (Auto) 66.0 % Lymphocytes (%) (Auto) 23.9 % Monocytes (%) (Auto) 8.0 % Eosinophils (%) (Auto) 1.4 % Basophils (%) (Auto) 0.7 % Neutrophils # (Auto) 5.2 TH/MM3 Lymphocytes # (Auto) 1.9 TH/MM3 Monocytes # (Auto) 0.6 TH/MM3 Eosinophils # (Auto) 0.1 TH/MM3 Basophils # (Auto) 0.1 TH/MM3 CBC Comment DIFF FINAL Differential Comment Prothrombin Time 10.7 SEC Prothromb Time International Ratio 1.1 RATIO Activated Partial Thromboplast Time 27.2 SEC Blood Urea Nitrogen 13 MG/DL Creatinine 1.13 MG/DL Random Glucose 71 MG/DL Total Protein 8.1 GM/DL Albumin 4.5 GM/DL Calcium Level 9.3 MG/DL Alkaline Phosphatase 97 U/L Aspartate Amino Transf (AST/SGOT) 21 U/L Alanine Aminotransferase (ALT/SGPT) 16 U/L Total Bilirubin 0.9 MG/DL Sodium Level 137 MEQ/L Potassium Level 3.7 MEQ/L Chloride Level 101 MEQ/L Carbon Dioxide Level 19.5 MEQ/L Anion Gap 17 MEQ/L Estimat Glomerular Filtration Rate 74 ML/MIN Total Creatine Kinase 201 U/L Creatine Kinase MB 0.9 NG/ML Troponin I LESS THAN 0.02 NG/ML MDM Medical Decision Making Medical Screen Exam Complete: Yes Emergency Medical Condition: Yes Medical Record Reviewed: Yes Interpretation(s) ECG shows normal sinus rhythm at a rate of 92, no ST elevation or depression Differential Diagnosis Dehydration versus paroxysmal A. fib versus electrolyte abnormality versus ACS Narrative Course Patient is a 32-year-old male who comes in after syncopal episode. Exam shows no neurologic abnormalities. IV established, labs sent. Labs show no acute abnormalities. CT head, C-spine show no acute abnormalities. CTA of the chest shows no evidence of PE. X-ray of the shoulder and hip show no acute abnormalities. Last [address] 11/12/171240 Signed Impressions: CONCLUSION: 1. No acute intracranial abnormality. 2. Maxillary sinuses are completely opacified consistent with severe bilateral maxillary sinus disease with possible underlying mucoceles bilaterally. Cervical Spine CT 11/12/171240 Signed Impressions: CONCLUSION: 1. No acute fracture or prevertebral soft tissue swelling. 2. Biapical fibrotic scarring. CT Angiography 11/12/171240 Signed Impressions: CONCLUSION: 1. No evidence of pulmonary embolism. 2. 5 mm noncalcified nodular density within the expected region of the minor f issure consistent with possible lymph node or true pulmonary nodule. Follow-up CT of the chest in one year is recommended to confirm stability. 3. Biapical fibrotic scarring. 4. Scoliosis and degenerative changes of the thoracic spine. Shoulder X-Ray 11/12/17 0000 Signed Impressions: CONCLUSION: No evidence of recent bony injury. Hip and Pelvis X-Ray 11/12/17 0000 Signed Impressions: CONCLUSION: 1. No acute fracture or dislocation. 2. Mild degenerative changes involving the hip joints bilaterally. Orthostatic vital signs are positive as the pulse increases nearly 30 points from lying to standing. Patient given IV fluids. I advised that he should stay in the hospital for further management as he may be going in and out of A. fib. Patient does not want to stay at this time. [facility] I did advise him that if he passes out again, he could hit his head and develop a brain bleed. Advised that he is at risk for serious illness or . He understands this and would still like to go home. He is advised to return anytime for any worsening symptoms. 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 Increase her fluid intake. Return to the ED as needed for any worsening symptoms. Disposition: 01 DISCHARGE HOME Condition: Stable Rashida Worley MD Nov 12, 2017 18:06
--- NOTE | 2017-11-13 09:27 | EKG ---
Date Performed: 11/12/2017 Time Performed: 12:24:37 PTAGE: 32 years EKG: Sinus rhythm WITH SINUS ARRHYTHMIA WITH SHORT IA INTERVAL BORDERLINE ECG INTERPRETATION BASED ON A DEFAULT AGE OF 38 YEARS PREVIOUS TRACING : 09/13/2017 11.40 Since the previous tracing, no significant change not ed DOCTOR: Niranjan Escobar Interpretating Date/Time 11/13/2017 09:26:07
== END 2017-11-12 18:36 | disposition home or self-care (01) ==
LOC: NEPE 11:58
DX: R55 Syncope and collapse (principal); M25.512 Pain in left shoulder; M79.605 Pain in left leg; R94.31 Abnormal electrocardiogram [ECG] [EKG]; I48.91 Unspecified atrial fibrillation; Y93.E1 Activity, personal bathing and showering; F32.9 Major depressive disorder, single episode, unspecified; F17.220 Nicotine dependence, chewing tobacco, uncomplicated; Z79.899 Other long term (current) drug therapy
CPT/HCPCS: 70450; 71275; 72125; 73030; 73502; 80053; 82550; 82552; 84484; 85025; 85610; 85730; 93005; 96360; 99285; J7030; Q9967